=== PATIENT | male | born 1940 | race Caucasian/White ===

== ENCOUNTER 2017-12-26 09:15 | Emergency (ER) | payer OTHER, MEDICARE ==
--- NOTE | 2017-12-26 10:04 | ER Document Report ---
ED General - General Chief Complaint: Cough Stated Complaint: COUGH,URINARY ISSUES Time Seen by Provider: 12/26/17 09:57 Notes: The patient is a 77-year-old male, past medical history bladder cancer with surgery in 2013, presents with cough for the past few days and pain in his right back when he is coughing. In addition, feels like he is having decreased urine output. Usually he wakes 5 times in the night to urinate, but he only woke up twice last night. He was at the [place] [facility] and was sent to the ER for further evaluation and treatment. He denies fevers, hemoptysis, chest pain at rest, nausea, vomiting, abdominal pain or flank pain. TRAVEL OUTSIDE OF THE [place] IN LAST 30 DAYS: No - Related Data Allergies/Adverse Reactions: Penicillins Allergy (Verified 12/26/17 09:57) Past Medical History - General Information source: Patient - Social History Smoking Status: Never Smoker Chew tobacco use (# tins/day): No Frequency of alcohol use: Social Drug Abuse: None Family History: Reviewed & Not Pertinent Patient has suicidal ideation: No Patient has homicidal ideation: No - Past Medical History Cardiac Medical History: Reports: Hx DVT, Hx Hypercholesterolemia, Hx Hypertension Renal/ Medical History: Reports: Hx Benign Prostatic Hyperplasia. Denies: Hx Peritoneal Dialysis Musculoskeltal Medical History: Reports Hx Arthritis, Reports Hx Musculoskeletal Deformity, Reports Hx Musculoskeletal Trauma Past Surgical History: Reports: Hx Cardiac Catheterization, Hx Cardiac Surgery - stents, Hx Genitourinary Surgery - TURP, Hx Orthopedic Surgery - Left knee, multiple back surgeries most recently 1 01/15/2016 kyphoplasty L Review of Systems - Review of Systems Notes: REVIEW OF SYSTEMS: CONSTITUTIONAL: -fevers, -chills EENT: -eye pain, -difficulty swallowing, -nasal congestion CARDIOVASCULAR: -chest pain, -syncope. RESPIRATORY: +cough, -SOB GASTROINTESTINAL: -abdominal pain, -nausea, -vomiting, -diarrhea GENITOURINARY: -dysuria, -hematuria, +decreased urine output MUSCULOSKELETAL: +back pain, -neck pain SKIN: -rash or skin lesions. HEMATOLOGIC: -easy bruising or bleeding. LYMPHATIC: -swollen, enlarged glands. NEUROLOGICAL: -altered mental status or loss of consciousness, -headache, - neurologic symptoms PSYCHIATRIC: -anxiety, -depression. ALL OTHER SYSTEMS REVIEWED AND NEGATIVE. Physical Exam - Vital signs Vitals: Temp Pulse Resp BP Pulse Ox 97.6 F 77 16 133/62 H 96 12/26/17 09:26 12/26/17 09:26 12/26/17 09:12/26/17 09:12/26/17 09:26 - Notes Notes: PHYSICAL EXAMINATION: GENERAL: Well-appearing, well-nourished and in no acute distress. HEAD: Atraumatic, normocephalic. EYES: Pupils equal round and reactive to light, extraocular movements intact, sclera anicteric, conjunctiva are normal. ENT: nares patent, oropharynx clear without exudates. Moist mucous membranes. NECK: Normal range of motion, supple without lymphadenopathy LUNGS: Breath sounds clear to auscultation bilaterally and equal. No wheezes rales or rhonchi. HEART: Regular rate and rhythm without murmurs ABDOMEN: Soft, nontender, normoactive bowel sounds. No guarding, no rebound. No masses appreciated. EXTREMITIES: Normal range of motion, no pitting or edema. No cyanosis. BACK: Mild tenderness over right posterior lower chest wall. NEUROLOGICAL: Cranial nerves grossly intact. Normal speech, normal gait. Normal sensory and motor exams. PSYCH: Normal mood, normal affect. SKIN: Warm, Dry, normal turgor, no rashes or lesions noted. Course - Re-evaluation Re-evalutation: Patient appears well and is in no acute distress. His chest x-ray does not show any focal infiltrates. Spoke to him about the bone island on the left side of his chest x-ray, which is not where his pain is located. Rest of blood work and urine are unremarkable. Suspect a component of chest wall strain from the coughing. Instructed him that heating pads, icy hot and follow-up with his primary care physician. Given strict return precautions and he understands. - Vital Signs Vital signs: Temp Pulse Resp BP Pulse Ox 97.6 F 77 16 133/62 H 96 12/26/17 09:26 12/26/17 09:26 12/26/17 09:26 12/26/17 09:26 12/26/17 09:26 - Laboratory Result Diagrams: 12/26/17 10:14 12/26/17 10:14 Laboratory results interpreted by me: 12/26/17 10:14 Carbon Dioxide 31 H - Diagnostic Test Radiology reviewed: Image reviewed, Reports reviewed Radiology results interpreted by me: CXR: No acute infiltrates. 2 cm density over the left posterior 7th rib likely a bone island in the rib itself. Discharge - Discharge Clinical Impression: Cough, Decreased urination Back pain Qualifiers: Back pain location: back pain in unspecified location Chronicity: unspecified Back pain laterality: right Qualified Code(s): M54.9 - Dorsalgia, unspecified Condition: Stable Disposition: HOME, SELF-CARE Additional Instructions: There is no evidence of pneumonia on your chest x-ray. 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 Your blood work and urine were normal. Forms: Elevated Blood Pressure Referrals: ALICE ESQUEDA MD [Primary Care Provider] - Follow up as needed
[2017-12-26 10:35] LABS: ABSOLUTE EOSINOPHILS # (AUTO) 0.1 10^3/uL (0.0-0.6); ABSOLUTE LYMPHOCYTES (AUTO) 2.2 10^3/uL (0.5-4.7); ABSOLUTE MONOCYTES (AUTO) 0.7 10^3/uL (0.1-1.4); BASOPHILS % (AUTO) 0.8 % (0-2); HEMATOCRIT 47.9 % (37.9-51.0); HEMOGLOBIN 16.4 g/dL (13.5-17.0); LYMPHOCYTES % (AUTO) 37.2 % (13-45); MEAN CORPUSCULAR HEMOGLOBIN 32.1 pg (27.0-33.4); MEAN CORPUSCULAR HGB CONC 34.2 g/dL (32.0-36.0); MEAN CORPUSCULAR VOLUME 94 fl (80-97); MONOCYTES % (AUTO) 10.8 % (3-13); PLATELET COUNT 187 10^3/uL (150-450); RED BLOOD COUNT 5.11 10^6/uL (4.35-5.55); SEGMENTED NEUTROPHILS % (AUTO) 49.2 % (42-78); TOTAL CELLS COUNTED % (AUTO) 100 %
--- NOTE | 2017-12-26 10:54 | RADIOLOGY REPORT (SQ) ---
EXAM DESCRIPTION: CHEST 2 VIEWS COMPLETED DATE/TIME: 12/26/2017 10:30 am REASON FOR STUDY: cough COMPARISON: None. EXAM PARAMETERS: NUMBER OF VIEWS: two views TECHNIQUE: Digital Frontal and Lateral radiographic views of the chest acquired. RADIATION DOSE: NA LIMITATIONS: none FINDINGS: LUNGS AND PLEURA: No focal infiltrates or pleural effusions. No pneumothorax. A 2 cm density is seen over the left posterior 7th rib on both frontal and lateral films which is lik geremias a bone island in the rib. Pulmonary nodule is considered less likely. MEDIASTINUM AND HILAR STRUCTURES: No masses or contour abnormalities. HEART AND VASCULAR STRUCTURES: Heart normal size. No evidence for failure. BONES: Osteoporotic with multiple thoracic compressions. L1 and L2 kyphoplasties with bone cement HARDWARE: None in the chest. OTHER: No other significant finding. IMPRESSION: No acute infiltrates. 2 cm density over the left posterior 7th rib likely a bone island in the rib itself. TECHNICAL DOCUMENTATION: JOB ID: [id number] [employer]- All Rights Reserved Reading location - IP/workstation name: [email or web address]
[2017-12-26 10:58] LABS: ALANINE AMINOTRANSFERASE 21 U/L (21-72); ALBUMIN 3.7 g/dL (3.5-5.0); ALKALINE PHOSPHATASE 63 U/L (38-126); ANION GAP 9 (5-19); ASPARTATE AMINO TRANSFERASE 29 U/L (17-59); BILIRUBIN,DIRECT 0.3 mg/dL (0.0-0.4); BILIRUBIN,TOTAL 0.9 mg/dL (0.2-1.3); BLOOD UREA NITROGEN 16 mg/dL (7-20); CALCIUM 9.7 mg/dL (8.4-10.2); CARBON DIOXIDE 31 mmol/L (22-30); CHLORIDE 103 mmol/L (98-107); GLUCOSE 75 mg/dL (75-110); POTASSIUM 4.8 mmol/L (3.6-5.0); SODIUM 143.2 mmol/L (137-145); TOTAL PROTEIN 6.6 g/dL (6.3-8.2)
[2017-12-26 11:17] LABS: APPEARANCE,URINE CLEAR; BILIRUBIN,URINE NEGATIVE (NEGATIVE); COLOR,URINE YELLOW; GLUCOSE, URINE NEGATIVE (NEGATIVE); KETONES,URINE NEGATIVE (NEGATIVE); LEUKOCYTE ESTERASE,URINE NEGATIVE (NEGATIVE); NITRITE,URINE NEGATIVE (NEGATIVE); PROTEIN,URINE NEGATIVE (NEGATIVE); URINE SPECIFIC GRAVITY 1.011; UROBILINOGEN,URINE NEGATIVE mg/dL (<2.0)
[2017-12-26 12:01] VITALS: BP 175/68
== END 2017-12-26 12:03 | disposition home or self-care (01) ==
LOC: ER 09:15
DX: R05 Cough (principal); R33.9 Retention of urine, unspecified; M54.9 Dorsalgia, unspecified; I10 Essential (primary) hypertension
CPT/HCPCS: 36415; 71046; 80053; 81001; 85025; 99284

== ENCOUNTER 2019-02-26 09:30 | Emergency (ER) | payer MEDICARE, OTHER ==
--- NOTE | 2019-02-26 09:54 | ER Document Report ---
ED Medical Screen (RME) - General Chief Complaint: Leg Pain Stated Complaint: LEG PAIN Time Seen by Provider: 02/26/19 09:46 Mode of Arrival: Ambulatory Information source: Patient Notes: 78-year-old male presents to ED for complaint of right calf pain since yesterday. He states he has had a DVT in the past in the same leg that went all way up to the groin in 2016. He is on Eliquis. He also has coronary artery disease. Blood pressure cholesterol. He states he is also had bilateral knee surgery bilateral inguinal hernia surgery multiple back surgeries and cardiac stents. He is alert oriented respirations regular and unlabored speaking in full sentences walks with a even steady gait. As I said the calf pain started yesterday there is very minimal if any swelling to the right leg. I have greeted and performed a rapid initial assessment of this patient. A comprehensive ED assessment and evaluation of the patient, analysis of test results and completion of medical decision making process will be conducted by an additional ED providers. Dictation of this chart was performed using voice recognition software; therefore, there may be some unintended grammatical errors. TRAVEL OUTSIDE OF THE [place] IN LAST 30 DAYS: No - Related Data Allergies/Adverse Reactions: Penicillins Allergy (Verified 02/26/19 09:31) Past Medical History - Past Medical History Cardiac Medical History: Reports: Hx DVT, Hx Hypercholesterolemia, Hx Hypertension Renal/ Medical History: Reports: Hx Benign Prostatic Hyperplasia. Denies: Hx Peritoneal Dialysis Musculoskeltal Medical History: Reports Hx Arthritis, Reports Hx Musculoskeletal Deformity, Reports Hx Musculoskeletal Trauma Past Surgical History: Reports: Hx Cardiac Catheterization, Hx Cardiac Surgery - stents, Hx Genitourinary Surgery - TURP, Hx Orthopedic Surgery - Left knee, multiple back surgeries most recently 1 01/15/2016 kyphoplasty L Physical Exam - Vital signs Vitals: Temp Pulse Resp BP Pulse Ox 98.1 F 57 L 17 156/66 H 97 02/26/19 09:34 02/26/19 09:34 02/26/19 09:34 02/26/19 09:34 02/26/19 09:34 Course - Vital Signs Vital signs: Temp Pulse Resp BP Pulse Ox 98.1 F 57 L 17 156/66 H 97 02/26/19 09:34 02/26/19 09:34 02/26/19 09:34 02/26/19 09:34 02/26/19 09:34
[2019-02-26 10:21] LABS: ABSOLUTE EOSINOPHILS # (AUTO) 0.1 10^3/uL (0.0-0.6); ABSOLUTE LYMPHOCYTES (AUTO) 1.6 10^3/uL (0.5-4.7); ABSOLUTE MONOCYTES (AUTO) 0.7 10^3/uL (0.1-1.4); ABSOLUTE NEUT (AUTO) 3.4 10^3/uL (1.7-8.2); BASOPHILS % (AUTO) 0.8 % (0-2); EOSINOPHILS % (AUTO) 1.2 % (0-6); HEMATOCRIT 47.8 % (37.9-51.0); HEMOGLOBIN 16.3 g/dL (13.5-17.0); LYMPHOCYTES % (AUTO) 28.2 % (13-45); MEAN CORPUSCULAR HEMOGLOBIN 31.7 pg (27.0-33.4); MEAN CORPUSCULAR VOLUME 93 fl (80-97); MONOCYTES % (AUTO) 11.3 % (3-13); PLATELET COUNT 151 10^3/uL (150-450); RED BLOOD COUNT 5.14 10^6/uL (4.35-5.55); RED CELL DISTRIBUTION WIDTH 13.7 % (11.5-14.0); SEGMENTED NEUTROPHILS % (AUTO) 58.5 % (42-78); TOTAL CELLS COUNTED % (AUTO) 100 %; WHITE BLOOD COUNT 5.8 10^3/uL (4.0-10.5)
[2019-02-26 10:30] LABS: INTERNATIONAL RATION (INR) 1.17; PROTHROMBIN TIME 14.9 SEC (11.4-15.4)
[2019-02-26 10:31] LABS: PARTIAL THROMBOPLASTIN TIME 32.5 SEC (23.5-35.8)
[2019-02-26 10:44] LABS: ALBUMIN 4.1 g/dL (3.5-5.0); ALKALINE PHOSPHATASE 65 U/L (38-126); ANION GAP 7 (5-19); ASPARTATE AMINO TRANSFERASE 32 U/L (17-59); BILIRUBIN,DIRECT 0.2 mg/dL (0.0-0.4); BLOOD UREA NITROGEN 18 mg/dL (7-20); CALCIUM 9.7 mg/dL (8.4-10.2); CARBON DIOXIDE 29 mmol/L (22-30); CHLORIDE 101 mmol/L (98-107); GLUCOSE 109 mg/dL (75-110); POTASSIUM 4.6 mmol/L (3.6-5.0); TOTAL PROTEIN 6.6 g/dL (6.3-8.2)
--- NOTE | 2019-02-26 12:01 | RADIOLOGY REPORT (SQ) ---
EXAM DESCRIPTION: VENOUS UNILATERAL LOWER COMPLETED DATE/TIME: 02/26/2019 10:53 am REASON FOR STUDY: right calf pain previous dvt COMPARISON: None. 03/07/2016 TECHNIQUE: Dynamic and static ervin scale and color images acquired of the right leg venous system. S elected spectral images acquired with additional compression and augmentation maneuvers. The contrala teral common femoral vein and saphenofemoral junction were also imaged. Images stored on PACS. LIMITATIONS: None. FINDINGS: COMMON FEMORAL: Normal phasicity, compression and augmentation. No visualized echogenic ma terial on ervin scale. No defects on color images. FEMORAL: Normal compression and augmentation. No visualized echogenic material on ervin scale. No defe cts on color images. POPLITEAL: Chronic echogenic thrombus. CALF VESSELS: Chronic echogenic thrombus. GSV and SSV: Chronic echogenic thrombus in the greater saphenous. ANY DEEP VENOUS INSUFFICIENCY: Not evaluated. ANY EVIDENCE OF POPLITEAL CYST: No. OTHER: No other significant finding. CONTRALATERAL COMMON FEMORAL VEIN AND SAPHENOFEMORAL JUNCTION: Normal phasicity, compression and augmentation. No visualized echogenic material on ervin scale. No de fects on color images. IMPRESSION: No acute DVT or SVT. Chronic thrombus popliteal and distal as well as greater saphenous . TECHNICAL DOCUMENTATION: JOB ID: [id number] [employer]- All Rights Reserved Reading location - IP/workstation name: [email or web address]
--- NOTE | 2019-02-26 12:46 | ER Document Report ---
Entered by ELISE DUBOSE SCRIBE 02/26/19 1038 Acting as scribe for:URBANO ESTES MD ED General - General Chief Complaint: Leg Pain Stated Complaint: LEG PAIN Time Seen by Provider: 02/26/19 09:46 Primary Care Provider: LELA,GENIE [Primary Care Provider] - Follow up in 1 week Mode of Arrival: Ambulatory Notes: Patient is a 78-year-old male with history of DVT presenting to the emergency department complaining of pain in his right calf. Patient states that he n oticed the pain started yesterday, he is currently taking Eliquis for his DVT. TRAVEL OUTSIDE OF THE [place] IN LAST 30 DAYS: No - Related Data Allergies/Adverse Reactions: Penicillins Allergy (Verified 02/26/19 09:31) Past Medical History - General Information source: Patient - Social History Smoking Status: Former Smoker Cigarette use (# per day): No Chew tobacco use (# tins/day): No Frequency of alcohol use: Social Drug Abuse: None Family History: Reviewed & Not Pertinent Patient has suicidal ideation: No Patient has homicidal ideation: No - Past Medical History Cardiac Medical History: Reports: Hx DVT, Hx Hypercholesterolemia, Hx Hypertension Renal/ Medical History: Reports: Hx Benign Prostatic Hyperplasia Musculoskeletal Medical History: Reports Hx Arthritis, Reports Hx Musculoskeletal Deformity, Reports Hx Musculoskeletal Trauma Past Surgical History: Reports: Hx Cardiac Catheterization, Hx Cardiac Surgery - stents, Hx Genitourinary Surgery - TURP, Hx Orthopedic Surgery - Left knee, multiple back surgeries most recently 1 01/15/2016 kyphoplasty L Review of Systems - Review of Systems Constitutional: No symptoms reported EENT: No symptoms reported Cardiovascular: No symptoms reported Respiratory: No symptoms reported Gastrointestinal: No symptoms reported Genitourinary: No symptoms reported Male Genitourinary: No symptoms reported Musculoskeletal: See HPI, Other - Right calf pain Skin: No symptoms reported Hematologic/Lymphatic: See HPI, Blood clots - DVT Neurological/Psychological: No symptoms reported -: Yes All other systems reviewed and negative Physical Exam - Vital signs Vitals: Temp Pulse Resp BP Pulse Ox 98.1 F 57 L 17 156/66 H 97 02/26/19 09:34 02/26/19 09:34 02/26/19 09:34 02/26/19 09:34 02/26/19 09:34 - Notes Notes: Physical Exam: General: Alert, appears well. HEENT: Normocephalic. Atraumatic. PERRL. Extraocular movements intact. Oropharynx clear. Neck: Supple. Non-tender. Respiratory: No respiratory distress. Clear and equal breath sounds bilaterally. Cardiovascular: Regular rate and rhythm. Abdominal: Normal Inspection. Non-tender. No distension. Normal Bowel Sounds. Back: Non-tender. No deformity or step off. Extremities: Moves all four extremities. Upper extremities: Normal inspection. Normal ROM. Lower extremities: Right posterior calf tenderness to palpation. No palpable cords, no unusual warmth. No edema. Normal ROM. Neurological: Normal cognition. AAOx4. Normal speech. Psychological: Normal affect. Normal Mood. Skin: Warm. Dry. Normal color. Course - Re-evaluation Re-evalutation: 02/26/19 12:45 No acute DVT or SVT, chronic findings. Discussed with patient. Also discussed case with oncologist on-call who stated if chronic in nature no need for anticoagulation change. Patient is to follow-up with his family doctor in the next 5 to 7 days any worsening of symptoms for reevaluation. He does not have any chest pain or shortness of breath. - Vital Signs Vital signs: Temp Pulse Resp BP Pulse Ox 98.2 F 49 L 18 156/83 H 95 02/26/19 12:56 02/26/19 12:56 02/26/19 12:56 02/26/19 12:56 02/26/19 12:56 - Laboratory Result Diagrams: 02/26/19 10:06 02/26/19 10:06 Discharge - Discharge Clinical Impression: Calf pain Qualifiers: Laterality: right Qualified Code(s): M79.661 - Pain in right lower leg Chronic deep vein thrombosis (DVT) Qualifiers: DVT location: lower extremity Affected thrombotic vein of extremity: other lower extremity vein Laterality: right Qualified Code(s): I82.591 - Chronic embolism and thrombosis of other specified deep vein of right lower extremity Condition: Good Disposition: HOME, SELF-CARE Referrals: [facility] [Primary Care Provider] - Follow up in 1 week I personally performed the services described in the documentation, reviewed and edited the documentation which was dictated to the scribe in my presence, and it accurately records my words and actions.
[2019-02-26 12:58] VITALS: BP 156/83
== END 2019-02-26 12:58 | disposition home or self-care (01) ==
LOC: ER 09:30
DX: I82.591 Chronic embolism and thrombosis of other specified deep vein of right lower extremity (principal); M79.661 Pain in right lower leg; Z79.01 Long term (current) use of anticoagulants; Z87.891 Personal history of nicotine dependence; I10 Essential (primary) hypertension
CPT/HCPCS: 36415; 80053; 85025; 85610; 85730; 93971; 99284

== ENCOUNTER 2019-03-26 08:37 | Day surgery (SDC) | payer OTHER, MEDICARE ==
[~2019-03-26 08:37] MED LIST: DIPHENHYDRAMINE HCL 50 MG/ML VIAL ONE; EPINEPHRINE INJ 1 MG/10 ML DISP.SYRIN ONE; FLUMAZENIL INJ 0.5 MG/5 ML VIAL ONE; GLUCAGON,HUMAN RECOMB 1 MG INJ ONE; NALOXONE HCL INJ/PF 0.4 MG/1 ML SDV ONE; ONDANSETRON HCL INJ/PF 4 MG/2 ML SDV ONE
[2019-03-26] MEDS: MIDAZOLAM 2 MG/2 ML INJ ONE ×5 (09:34→09:48)
[2019-03-26] MEDS: FENTANYL CITRATE INJ/PF 100 MCG/2 ML AMPUL ONE ×2 (09:36→09:50)
[2019-03-26] MEDS ORDERED: SIMETHICONE 40 MG/0.6 ML DROPS 30ML ONE (10:25)
--- NOTE | 2019-03-26 10:44 | Discharge Summary ---
Discharge Summary (SDC) - Discharge Final Diagnosis: 1. Esophageal and gastric varices 2. Diffuse gastritis 3. Extensive sigmoid colon diverticulosis 4. Colon Polyp at 32 cm Date of Surgery: 03/26/19 Discharge Date: 03/26/19 Condition: Good Referrals: [facility] [Primary Care Provider] - Discharge Diet: As Tolerated Discharge Activity: Activity As Tolerated Report the Following to Your Physician Immediately: Shortness of Breath, Increase in Pain, Fever over 101 Degrees
--- NOTE | 2019-03-26 10:49 | Operative Report ---
Operative Report DATE OF SURGERY: 03/26/19 PREOPERATIVE DIAGNOSIS: 1. Melena. 2. Screen for colon and rectal carcinoma POSTOPERATIVE DIAGNOSIS: Same with. 1. Diffuse gastritis with mild erosive area of the gastric body. 2. Esophageal and gastric varices. 3. Extensive sigmoid diverticulosis. 4. Sigmoid colon polyp OPERATION: 1. Esophagogastroduodenoscopy. 2. Cold forceps biopsy of gastric body and gastric antrum. 3. Total colonoscopy to cecum with photodocumentation and hot snare polypectomy of sigmoid colon polyp at 35 cm. SURGEON: ALBERTO NICHOLSON ANESTHESIA: Moderate Sedation TISSUE REMOVED OR ALTERED: Tissue and polyp COMPLICATIONS: None ESTIMATED BLOOD LOSS: Minimal INTRAOPERATIVE FINDINGS: See below PROCEDURE: Patient was taken the preop holding area to the endoscopy suite where monitoring devices were attached; he was placed in semirecumbent position. Surgical plan surgical timeout were conducted. Oral mouthpiece inserted. The flexible upper endoscope was advanced to the oropharynx, down the esophagus to stomach into the duodenum. The patient tolerated this well. The first and second portion of the duodenum were normal. The scope was brought back to the pylorus which was normal. The stomach was significant for diffuse gastritis. Along the greater curvature proximally was an area of mild/moderate inflammation superficial eroded areas. Photo taken. Of note there were diffuse 1-2 esophageal and gastric varices. 2 biopsies were taken of the stomach lining, one in the proximal greater curve and a second of the antrum. No evidence of tumor stricture bleeding polyp or clot. The GE junction was grossly unremarkable from the retrograde and anterograde sites. The Z line was at 38 cm from the incisor. The scope was brought back to the esophagus and other than the varices, no other pathology seen. Scope was withdrawn the patient oropharynx. The patient was repositioned for colonoscopy. A rectal exam was performed. Posterior surface of the prostate gland was enlarged but smooth. The flexible adult colonoscope was advanced although through the anal rectal canal of the cecum. This is an excellent 7 well-prepped bowel. The tumor was visualized with the ileocecal valve photographed. The scope was withdrawn to light the colon checked the mucosa carefully. There were extensive sigmoid diverticulosis without stricture. There was a sessile polyp of the sigmoid colon at approximately 32 cm from the anal verge which was moved using a hot snare device medium heat and specimen retained. Polypectomy site showed minimal bleeding. The scope was withdrawn the patient's anus. He tolerated procedure well. Per surveillance guidelines, patient be an appropriate candidate for follow-up colonoscopy in 3 to 5 years depending upon his clinical condition given his advancing age.
[2019-03-26 11:36] VITALS: BP 125/61
== END 2019-03-26 11:35 | disposition home or self-care (01) ==
LOC: END 08:37
PROVIDERS: ATTEND Surgery
DX: I85.00 Esophageal varices without bleeding (principal); I86.4 Gastric varices; K29.50 Unspecified chronic gastritis without bleeding; D12.5 Benign neoplasm of sigmoid colon; K57.30 Diverticulosis of large intestine without perforation or abscess without bleeding; K92.1 Melena; Z79.01 Long term (current) use of anticoagulants; E78.00 Pure hypercholesterolemia, unspecified; E04.1 Nontoxic single thyroid nodule; I10 Essential (primary) hypertension; Z86.718 Personal history of other venous thrombosis and embolism; Z87.891 Personal history of nicotine dependence; Z79.899 Other long term (current) drug therapy
CPT/HCPCS: 43239; 45385; 88305 ×2; J2250; J3010; J0171; J1200; J1610; J2310; J2405; J3490

== ENCOUNTER 2019-05-16 11:36 | Emergency (ER) | payer OTHER ==
[2019-05-16 11:46] VITALS: BP 156/66
[2019-05-16] MEDS ORDERED: OXYMETAZOLINE HCL 0.05% NASAL SPRAY 15 ML BOTTLE NASL ONE (11:47)
--- NOTE | 2019-05-16 11:49 | ER Document Report ---
ED Medical Screen (RME) - General Chief Complaint: Nose Bleed Stated Complaint: NOSE BLEED Time Seen by Provider: 05/16/19 11:44 Primary Care Provider: GENIE VOGEL [Primary Care Provider] - Follow up as needed Information source: Patient Notes: Patient presents complaining of nosebleed that started at 630 this morning. Patient states that bleeding is able to be controlled with packing in the nose. Patient denies any nausea or vomiting. Patient denies any other abnormal bruising. Patient takes Eliquis for history of DVT in the past. I have greeted and performed a rapid initial assessment of this patient. A comprehensive ED assessment and evaluation of the patient, analysis of test results and completion of the medical decision making process will be conducted by additional ED providers. TRAVEL OUTSIDE OF THE [place] IN LAST 30 DAYS: No - Related Data Allergies/Adverse Reactions: latex Allergy (Verified 05/16/19 11:41) Penicillins Allergy (Verified 05/16/19 11:41) Home Medications: carafate. apixiban. rouvastatin. vitamin d3. calcium Past Medical History - Social History Chew tobacco use (# tins/day): No Drug Abuse: None - Past Medical History Cardiac Medical History: Reports: Hx Coronary Artery Disease - 2 STENTS PLACED IN 2010, Hx DVT, Hx Hypercholesterolemia, Hx Hypertension Denies: Hx Heart Attack Pulmonary Medical History: Denies: Hx Asthma, Hx Bronchitis, Hx COPD, Hx Pneumonia Neurological Medical History: Denies: Hx Cerebrovascular Accident, Hx Seizures Renal/ Medical History: Reports: Hx Benign Prostatic Hyperplasia. Denies: Hx Peritoneal Dialysis Musculoskeltal Medical History: Reports Hx Arthritis - GENERALIZED, Reports Hx Musculoskeletal Deformity, Reports Hx Musculoskeletal Trauma Past Surgical History: Reports: Hx Cardiac Catheterization, Hx Cardiac Surgery - stents, Hx Genitourinary Surgery - TURP, Hx Orthopedic Surgery - Left knee, multiple back surgeries most recently 1 01/15/2016 kyphoplasty L - Immunizations Hx Diphtheria, Pertussis, Tetanus Vaccination: No - NOT SURE IF UP TO DATE Physical Exam - Vital signs Vitals: Temp Pulse Resp BP Pulse Ox 98 F 62 16 156/66 H 96 05/16/19 11:41 05/16/19 11:41 05/16/19 11:41 05/16/19 11:41 05/16/19 11:41 - General General appearance: Alert Notes: Blood noted to tissue packed in the left nostril, no blood noted to posterior pharynx Course - Vital Signs Vital signs: Temp Pulse Resp BP Pulse Ox 98 F 62 16 156/66 H 96 05/16/19 11:41 05/16/19 11:41 05/16/19 11:41 05/16/19 11:41 05/16/19 11:41 Doctor's Discharge - Discharge Referrals: [facility] [Primary Care Provider] - Follow up as needed
[2019-05-16 12:21] LABS: ABSOLUTE LYMPHOCYTES (AUTO) 1.6 10^3/uL (0.5-4.7); ABSOLUTE MONOCYTES (AUTO) 0.5 10^3/uL (0.1-1.4); ABSOLUTE NEUT (AUTO) 3.7 10^3/uL (1.7-8.2); BASOPHILS % (AUTO) 0.8 % (0-2); EOSINOPHILS % (AUTO) 0.7 % (0-6); HEMATOCRIT 45.6 % (37.9-51.0); HEMOGLOBIN 15.7 g/dL (13.5-17.0); MEAN CORPUSCULAR HEMOGLOBIN 32.4 pg (27.0-33.4); MEAN CORPUSCULAR HGB CONC 34.3 g/dL (32.0-36.0); MEAN CORPUSCULAR VOLUME 94 fl (80-97); MONOCYTES % (AUTO) 9.2 % (3-13); PLATELET COUNT 169 10^3/uL (150-450); RED BLOOD COUNT 4.83 10^6/uL (4.35-5.55); RED CELL DISTRIBUTION WIDTH 13.9 % (11.5-14.0); SEGMENTED NEUTROPHILS % (AUTO) 62.3 % (42-78); TOTAL CELLS COUNTED % (AUTO) 100 %
[2019-05-16 12:31] LABS: INTERNATIONAL RATION (INR) 1.13; PROTHROMBIN TIME 14.5 SEC (11.4-15.4)
[2019-05-16 12:32] LABS: PARTIAL THROMBOPLASTIN TIME 31.7 SEC (23.5-35.8)
--- NOTE | 2019-05-16 12:32 | ER Document Report ---
ED ENT - General Chief Complaint: Nose Bleed Stated Complaint: NOSE BLEED Time Seen by Provider: 05/16/19 11:44 Primary Care Provider: [facility] [Primary Care Provider] - Follow up as needed Information source: Patient Notes: 79-year-old male presents to the emergency department with a spontaneous nosebleed. He states that he began noticing blood dripping from his left nostril this morning. He denies pain or nasal manipulation. He is taking apixaban twice daily, did not take the 7 AM dose today. Notes a prior history of nosebleeds and has a history of chronic rhinitis and uses Nasacort. He is presently stable without active nosebleed. TRAVEL OUTSIDE OF THE [place] IN LAST 30 DAYS: No - Related Data Allergies/Adverse Reactions: latex Allergy (Verified 05/16/19 11:41) Penicillins Allergy (Verified 05/16/19 11:41) Home Medications: carafate. apixiban. rouvastatin. vitamin d3. calcium Past Medical History - General Information source: Patient - Social History Smoking Status: Never Smoker Chew tobacco use (# tins/day): No Drug Abuse: None Family History: Reviewed & Not Pertinent Patient has suicidal ideation: No Patient has homicidal ideation: No - Past Medical History Cardiac Medical History: Reports: Hx Coronary Artery Disease - 2 STENTS PLACED IN 2010, Hx DVT, Hx Hypercholesterolemia, Hx Hypertension Denies: Hx Heart Attack Pulmonary Medical History: Denies: Hx Asthma, Hx Bronchitis, Hx COPD, Hx Pneumonia Neurological Medical History: Denies: Hx Cerebrovascular Accident, Hx Seizures Renal/ Medical History: Reports: Hx Benign Prostatic Hyperplasia. 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, Reports Hx Musculoskeletal Deformity, Reports Hx Musculoskeletal Trauma Past Surgical History: Reports: Hx Cardiac Catheterization, Hx Cardiac Surgery - stents, Hx Genitourinary Surgery - TURP, Hx Orthopedic Surgery - Left knee, multiple back surgeries most recently 1 01/15/2016 kyphoplasty L - Immunizations Hx Diphtheria, Pertussis, Tetanus Vaccination: No - NOT SURE IF UP TO DATE Review of Systems - Review of Systems Notes: REVIEW OF SYSTEMS GENERAL: Negative for any nausea, vomiting, fevers, chills, or weight loss. NEUROLOGIC: Negative for any blurry vision, blind spots, double vision, facial asymmetry, dysphagia, dysarthria, hemiparesis, hemisensory deficits, vertigo, ataxia. HEENT: + nosebleed, negative for any head trauma, neck trauma, neck stiffness, photophobia, phonophobia, sinusitis, rhinitis. CARDIAC: Negative for any chest pain, dyspnea on exertion, paroxysmal nocturnal dyspnea, peripheral edema. PULMONARY: Negative for any shortness of breath, wheezing, COPD, or TB exposure. GASTROINTESTINAL: Negative for any abdominal pain, nausea, vomiting, bright red blood per rectum, melena. GENITOURINARY: Negative for any dysuria, hematuria, incontinence. INTEGUMENTARY: Negative for any rashes, cuts, insect bites. RHEUMATOLOGIC: Negative for any joint pains, photosensitive rashes, history of vasculitis or kidney problems. HEMATOLOGIC: + DVT, Negative for any abnormal bruising, frequent infections or bleeding. Physical Exam - Vital signs Vitals: Temp Pulse Resp BP Pulse Ox 98 F 62 16 156/66 H 96 05/16/19 11:41 05/16/19 11:41 05/16/19 11:41 05/16/19 11:41 05/16/19 11:41 - Notes Notes: PHYSICAL EXAMINATION: GENERAL: Well-appearing, well-nourished and in no acute distress. HEAD: Atraumatic, normocephalic. EYES: Pupils equal round and reactive to light, extraocular movements intact, sclera anicteric, conjunctiva are normal. ENT: nares patent, no active bleeding, no ulcers or site of active prior bleeding, oropharynx clear without exudates. Moist mucous membranes. NECK: Normal range of motion, supple without lymphadenopathy LUNGS: Breath sounds clear to auscultation bilaterally and equal. No wheezes rales or rhonchi. HEART: Regular rate and rhythm without murmurs ABDOMEN: Soft, nontender, normoactive bowel sounds. No guarding, no rebound. No masses appreciated. EXTREMITIES: Normal range of motion, no pitting or edema. No cyanosis. NEUROLOGICAL: No focal neurological deficits. Moves all extremities spontaneously and on command. PSYCH: Normal mood, normal affect. SKIN: Warm, Dry, normal turgor, no rashes or lesions noted. Course - Re-evaluation Re-evalutation: 05/16/19 13:22 79-year-old male presents with a spontaneous nosebleed involving the left nare, Andrew-Synephrine nasal spray used and bleeding spontaneously stopped. He was observed in the emergency department for greater than an hour and is now stating he is ready to go home. I have explained to him that his nosebleed may recur. He is encouraged not to apply nasal steroids or to blow his nose. He has held his Eliquis today, I have encouraged him to follow with his doctor or return to the emergency department if there are further difficulties or complications. - Vital Signs Vital signs: Temp Pulse Resp BP Pulse Ox 98 F 62 16 156/66 H 96 05/16/19 11:41 05/16/19 11:41 05/16/19 11:41 05/16/19 11:41 05/16/19 11:41 - Laboratory Result Diagrams: 05/16/19 11:56 05/16/19 11:56 Laboratory results interpreted by me: 05/16/19 11:56 BUN 25 H AST 65 H Discharge - Discharge Clinical Impression: Epistaxis Disposition: HOME, SELF-CARE Additional Instructions: Apply pressure and a cold pack to the nasal area if the bleeding recurs. Return to the emergency department as needed. [facility]errals: [facility] [Primary Care Provider] - Follow up as needed
[2019-05-16 12:40] LABS: ALBUMIN 4.1 g/dL (3.5-5.0); ALKALINE PHOSPHATASE 82 U/L (38-126); ANION GAP 8 (5-19); ASPARTATE AMINO TRANSFERASE 65 U/L (17-59); BILIRUBIN,DIRECT 0.2 mg/dL (0.0-0.4); BLOOD UREA NITROGEN 25 mg/dL (7-20); CALCIUM 9.7 mg/dL (8.4-10.2); CARBON DIOXIDE 28 mmol/L (22-30); CHLORIDE 104 mmol/L (98-107); GLUCOSE 87 mg/dL (75-110)
== END 2019-05-16 13:39 | disposition home or self-care (01) ==
LOC: ER 11:36
DX: R04.0 Epistaxis (principal); I25.10 Atherosclerotic heart disease of native coronary artery without angina pectoris; Z91.040 Latex allergy status; Z88.0 Allergy status to penicillin; Z86.718 Personal history of other venous thrombosis and embolism
CPT/HCPCS: 36415; 85025; 85610; 85730; 80053; J3490

== ENCOUNTER 2019-05-18 10:27 | Emergency (ER) | payer OTHER ==
[2019-05-18] MEDS ORDERED: OXYMETAZOLINE HCL 0.05% NASAL SPRAY 15 ML BOTTLE NASL ONE (11:08)
--- NOTE | 2019-05-18 11:09 | ER Document Report ---
ED Medical Screen (RME) - General Chief Complaint: Nose Bleed Stated Complaint: NOSE BLEED Time Seen by Provider: 05/18/19 11:05 Primary Care Provider: [facility],GENIE [Primary Care Provider] - Follow up as needed Mode of Arrival: Ambulatory Information source: Patient Notes: Patient is an 79-year-old male presenting to the emergency department with chief complaint of left sided epistaxis. Patient reports bleeding started approximately 2 hours ago. Patient currently has a tissue inside of his nose and he believes the bleeding may have stopped. Patient reports recurrent nosebleeds, states he is taking Eliquis. Patient was seen here on Saturday for the same problem. Exam: No active bleeding noted from either nare. Dried blood noted in the posterior pharynx, no active bleeding noted. I have greeted and performed a rapid initial assessment of this patient. A comprehensive ED assessment and evaluation of the patient, analysis of test results and completion of the medical decision making process will be conducted by additional ED providers. I have specifically instructed the patient or family members with the patient to immediately return to any nursing staff should anything change in the patient's condition or with their chief complaint. This medical record was dictated with voice recognizing software. There may be grammatical, syntax errors that are unintended. TRAVEL OUTSIDE OF THE [place] IN LAST 30 DAYS: No - Related Data Allergies/Adverse Reactions: latex Allergy (Verified 05/16/19 11:41) Penicillins Allergy (Verified 05/16/19 11:41) Home Medications: eliquis Past Medical History - Social History Frequency of alcohol use: None Drug Abuse: None - Past Medical History Cardiac Medical History: Reports: Hx Coronary Artery Disease - 2 STENTS PLACED IN 2010, Hx DVT, Hx Hypercholesterolemia, Hx Hypertension Denies: Hx Heart Attack Pulmonary Medical History: Denies: Hx Asthma, Hx Bronchitis, Hx COPD, Hx Pneumonia Neurological Medical History: Denies: Hx Cerebrovascular Accident, Hx Seizures Renal/ Medical History: Reports: Hx Benign Prostatic Hyperplasia. Denies: Hx Peritoneal Dialysis Musculoskeltal Medical History: Reports Hx Arthritis - GENERALIZED, Reports Hx Musculoskeletal Deformity, Reports Hx Musculoskeletal Trauma Past Surgical History: Reports: Hx Cardiac Catheterization, Hx Cardiac Surgery - stents, Hx Genitourinary Surgery - TURP, Hx Orthopedic Surgery - Left knee, multiple back surgeries most recently 1 01/15/2016 kyphoplasty L - Immunizations Hx Diphtheria, Pertussis, Tetanus Vaccination: No - NOT SURE IF UP TO DATE Physical Exam - Vital signs Vitals: Temp Pulse Resp BP Pulse Ox 98.3 F 65 18 160/98 H 95 05/18/19 10:34 05/18/19 10:34 05/18/19 10:34 05/18/19 10:34 05/18/19 10:34 Course - Vital Signs Vital signs: Temp Pulse Resp BP Pulse Ox 98.3 F 65 18 160/98 H 95 05/18/19 10:34 05/18/19 10:34 05/18/19 10:34 05/18/19 10:34 05/18/19 10:34 Doctor's Discharge - Discharge Referrals: [facility] [Primary Care Provider] - Follow up as needed
--- NOTE | 2019-05-18 13:31 | ER Document Report ---
ED ENT - General Chief Complaint: Nose Bleed Stated Complaint: NOSE BLEED Time Seen by Provider: 05/18/19 11:05 [facility] Care Provider: [facility] [[facility] Provider] - Follow up as needed Mode of Arrival: Ambulatory Information source: Patient TRAVEL OUTSIDE OF THE [place] IN LAST 30 DAYS: No - HPI Notes: Patient presents with 2 days of nosebleed. He states it is been intermittent. He was seen here 2 days ago he states that time nasal spray was applied but it was not packed. He states the bleeding stopped he states this morning it was "gushing" again. He is on Eliquis. He denies any pain anywhere. He has no lightheadedness or dizziness. No previous history of nosebleeds. No history of trauma. Symptoms were intermittent. Bleeding appears to have now stopped. Symptoms were mild to moderate. Nothing made them better or worse. There were located on the left side of his nose. - Related Data Allergies/Adverse Reactions: latex Allergy (Verified 05/16/19 11:41) Penicillins Allergy (Verified 05/16/19 11:41) Home Medications: eliquis Past Medical History - General Information source: Patient - Social History Smoking Status: Former Smoker Frequency of alcohol use: None Drug Abuse: None Family History: Reviewed & Not Pertinent Patient has suicidal ideation: No Patient has homicidal ideation: No - Past Medical History Cardiac Medical History: Reports: Hx Coronary Artery Disease - 2 STENTS PLACED IN 2010, Hx DVT, Hx Hypercholesterolemia, Hx Hypertension Denies: Hx Heart Attack Pulmonary Medical History: Denies: Hx Asthma, Hx Bronchitis, Hx COPD, Hx Pneumonia Neurological Medical History: Denies: Hx Cerebrovascular Accident, Hx Seizures Renal/ Medical History: Reports: Hx Benign Prostatic Hyperplasia. 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, Reports Hx Musculoskeletal Deformity, Reports Hx Musculoskeletal Trauma Past Surgical History: Reports: Hx Cardiac Catheterization, Hx Cardiac Surgery - stents, Hx Genitourinary Surgery - TURP, Hx Orthopedic Surgery - Left knee, multiple back surgeries most recently 1 01/15/2016 kyphoplasty L - Immunizations Hx Diphtheria, Pertussis, Tetanus Vaccination: No - NOT SURE IF UP TO DATE Review of Systems - Review of Systems Constitutional: denies: Chills, Fever Cardiovascular: denies: Chest pain, Palpitations Respiratory: denies: Cough, Short of breath -: Yes All other systems reviewed and negative Physical Exam - Vital signs Vitals: Temp Pulse Resp BP Pulse Ox 98.3 F 65 18 160/98 H 95 05/18/19 10:34 05/18/19 10:34 05/18/19 10:34 05/18/19 10:34 05/18/19 10:34 Interpretation: Hypertensive - General General appearance: Appears well, Alert - HEENT Head: Normocephalic, Atraumatic Eyes: Normal Pupils: PERRL Nasal: Bloody discharge - Patient has some mild oozing of bright red blood from the anterior septal wall on the left., Epistaxis Mouth/Lips: Normal Mucous membranes: Moist Pharynx: Blood in hypopharynx - Respiratory Respiratory status: No respiratory distress Chest status: Nontender Breath sounds: Normal Chest palpation: Normal - Cardiovascular Rhythm: Regular Heart sounds: Normal auscultation Murmur: No - Abdominal Inspection: Normal Distension: No distension Bowel sounds: Normal Tenderness: Nontender Organomegaly: No organomegaly - Back Back: Normal, Nontender - Extremities General upper extremity: Normal inspection, Nontender, Normal color, Normal ROM, Normal temperature General lower extremity: Normal inspection, Nontender, Normal color, Normal ROM, Normal temperature, Normal weight bearing. No: Prabha's sign - Neurological Neuro grossly intact: Yes Cognition: Normal Orientation: AAOx4 Maxime Coma Scale Eye Opening: Spontaneous Maxime Coma Scale Verbal: Oriented [place] Coma Scale Motor: Obeys Commands [place] Coma Scale Total: 15 Speech: Normal Motor strength normal: LUE, RUE, LLE, RLE Sensory: Normal - Psychological Associated symptoms: Normal affect, Normal mood - Skin Skin Temperature: Warm Skin Moisture: Dry Skin Color: Normal Course - Re-evaluation Re-evalutation: 05/18/19 13:36 Nose was packed with Merocel. Patient is have been observed for 30 minutes with no further bleeding. Patient will be discharged follow-up with your nose and throat. - Vital Signs Vital signs: Temp Pulse Resp BP Pulse Ox 98.3 F 65 18 160/98 H 95 05/18/19 10:34 05/18/19 10:34 05/18/19 10:34 05/18/19 10:34 05/18/19 10:34 Procedures - Nosebleed Procedure Left Time completed: 13:37 Location: Anterior Supplies used: Nasal tampon - Merocel Notes: Bleeding has stopped. Discharge - Discharge Clinical Impression: Anterior epistaxis Condition: Stable Disposition: HOME, SELF-CARE Instructions: Nosebleed Instructions ([facility]) Additional Instructions: Leave packing in until you see the ear nose and throat doctor. Please call the ear nose and throat doctor as soon as possible to arrange for an appointment for this week. Prescriptions: Azithromycin [Zithromax 250 mg Tablet] 250 mg PO ASDIR PRN #6 tablet PRN Reason: [facility]errals: [facility] [Primary Care [facility]] - Follow up as needed URBANO NORRIS DO [ASSOCIATE] - Follow up in 3-5 days
[2019-05-18 14:16] VITALS: BP 188/86
== END 2019-05-18 14:15 | disposition home or self-care (01) ==
LOC: ER 10:27
DX: R04.0 Epistaxis (principal); I25.10 Atherosclerotic heart disease of native coronary artery without angina pectoris; I10 Essential (primary) hypertension; Z79.02 Long term (current) use of antithrombotics/antiplatelets; Z95.5 Presence of coronary angioplasty implant and graft; Z91.040 Latex allergy status; Z88.0 Allergy status to penicillin
CPT/HCPCS: 30901; 99283; J3490

== ENCOUNTER 2019-05-30 12:03 | Emergency (ER) | payer OTHER ==
[2019-05-30] MEDS ORDERED: OXYMETAZOLINE HCL 0.05% NASAL SPRAY 15 ML BOTTLE NASL ONE (12:10)
--- NOTE | 2019-05-30 12:13 | ER Document Report ---
ED Medical Screen (RME) - General Chief Complaint: Nose Bleed Stated Complaint: NOSE BLEEDING Time Seen by Provider: 05/30/19 12:10 Primary Care Provider: [facility] [Primary Care Provider] - Follow up as needed TRAVEL OUTSIDE OF THE [place] IN LAST 30 DAYS: No - HPI Notes: 05/30/19 12:11 Patient is an 79-year-old male on Eliquis who presents complaining of nosebleed for 30 minutes. Patient states that he was here couple times recently for nosebleeds and had it cauterized by ENT 8 days ago. No other concerns or complaints at this time. I have treated and performed a rapid initial assessment of this patient. A comprehensive ED assessment and evaluation of the patient, analysis of test results and completion of medical decision making process will be conducted by additional ED providers. PHYSICAL EXAMINATION: GENERAL: Well-appearing, well-nourished and in no acute distress. A&Ox4. Answers questions appropriately. Nose: The left nare has a slow leak at this time with blood in his oropharynx. Afrin was sprayed and 2 x 2 gauze soaked in Afrin and temporarily packed. - Related Data Allergies/Adverse Reactions: latex Allergy (Verified 05/16/19 11:41) Penicillins Allergy (Verified 05/16/19 11:41) Past Medical History - Past Medical History Cardiac Medical History: Reports: Hx Coronary Artery Disease - 2 STENTS PLACED IN 2010, Hx DVT, Hx Hypercholesterolemia, Hx Hypertension Denies: Hx Heart Attack Pulmonary Medical History: Denies: Hx Asthma, Hx Bronchitis, Hx COPD, Hx Pneumonia Neurological Medical History: Denies: Hx Cerebrovascular Accident, Hx Seizures Renal/ Medical History: Reports: Hx Benign Prostatic Hyperplasia. Denies: Hx Peritoneal Dialysis Musculoskeltal Medical History: Reports Hx Arthritis - GENERALIZED, Reports Hx Musculoskeletal Deformity, Reports Hx Musculoskeletal Trauma Past Surgical History: Reports: Hx Cardiac Catheterization, Hx Cardiac Surgery - stents, Hx Genitourinary Surgery - TURP, Hx Orthopedic Surgery - Left knee, multiple back surgeries most recently 1 01/15/2016 kyphoplasty L - Immunizations Hx Diphtheria, Pertussis, Tetanus Vaccination: No - NOT SURE IF UP TO DATE Doctor's Discharge - Discharge Referrals: [facility] [[facility] Care [facility]] - Follow up as needed
--- NOTE | 2019-05-30 13:15 | ER Document Report ---
ED ENT - General Chief Complaint: nosebleed Stated Complaint: NOSE BLEEDING Time Seen by Provider: 05/30/19 12:10 Primary Care Provider: [facility] [[facility] Care [facility]] - Follow up as needed TRAVEL OUTSIDE OF THE [place] IN LAST 30 DAYS: No - HPI Notes: 79-year-old male to the emergency department with complaints of a nosebleed that began this morning. He is been struggling with nosebleeds for the past 2 weeks. He initially presented to the emergency department on May 16 for nosebleed. At that time he did not have any packing or dressing placed. 2 days later he returned when he began to bleed again. He had a Merocel nasal dressing placed and did well. He then kept that in until he saw Dr. Travis, on May 21. In May 21 he had the nose cauterized and he did okay at home but still continued to have dark blood with postnasal drip over the next week. He did see Dr. Luciano again and was told to use Afrin to aid in his nosebleed relief. He is on Eliquis and his Eliquis dose was decreased in the past week. He is on Eliquis for recurrent blood clots in the legs. He states that his nose has been bleeding from the same left side and it is a little bit tender after all of the manipulation for the past 2 weeks. He denies any fevers or chills, blunt t rauma, headache, passing out, dizziness, chest pain, shortness of breath. - Related Data Allergies/Adverse Reactions: latex Allergy (Verified 05/30/19 12:12) Penicillins Allergy (Verified 05/30/19 12:12) Home Medications: eliquis Past Medical History - General Information source: Patient - Social History Smoking Status: Never Smoker Chew tobacco use (# tins/day): No Frequency of alcohol use: None Family History: Reviewed & Not Pertinent Patient has suicidal ideation: No Patient has homicidal ideation: No - Past Medical History Cardiac Medical History: Reports: Hx Coronary Artery Disease - 2 STENTS PLACED IN 2010, Hx DVT, Hx Hypercholesterolemia, Hx Hypertension Denies: Hx Heart Attack Pulmonary Medical History: Denies: Hx Asthma, Hx Bronchitis, Hx COPD, Hx Pneumonia Neurological Medical History: Denies: Hx Cerebrovascular Accident, Hx Seizures Renal/ Medical History: Reports: Hx Benign Prostatic Hyperplasia. 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, Reports Hx Musculoskeletal Deformity, Reports Hx Musculoskeletal Trauma Past Surgical History: Reports: Hx Cardiac Catheterization, Hx Cardiac Surgery - stents, Hx Genitourinary Surgery - TURP, Hx Orthopedic Surgery - Left knee, multiple back surgeries most recently 1 01/15/2016 kyphoplasty L - Immunizations Hx Diphtheria, Pertussis, Tetanus Vaccination: No - NOT SURE IF UP TO DATE Review of Systems - Review of Systems Constitutional: denies: Chills, Fever EENT: Nose pain - Left nare pain and nosebleed Cardiovascular: denies: Chest pain, Palpitations, Syncope, Dizziness, Lightheaded Respiratory: denies: Cough, Short of breath Gastrointestinal: denies: Abdominal pain, Diarrhea, Nausea, Vomiting Genitourinary: No symptoms reported Male Genitourinary: No symptoms reported Musculoskeletal: No symptoms reported Hematologic/Lymphatic: Easy bleeding - Patient is on Eliquis Neurological/Psychological: No symptoms reported -: Yes All other systems reviewed and negative Physical Exam - Vital signs Interpretation: Normal - General General appearance: Appears well, Alert In distress: None - HEENT Head: Normocephalic, Atraumatic Eyes: Normal Pupils: PERRL Ears: Normal External canal: Normal Tympanic membrane: Normal Nasal: Epistaxis - There is slight oozing of blood to the anterior left side of the left nostril. There is no septal hematoma. There is no purulent drainage.. No: Purulent discharge, Septal hematoma Mouth/Lips: Normal Pharynx: Normal Neck: Normal, Supple. No: Lymphadenopathy, Meningismus - Respiratory Respiratory status: No respiratory distress Chest status: Nontender Breath sounds: Normal Chest palpation: Normal - Cardiovascular Rhythm: Regular Heart sounds: Normal auscultation Murmur: No - Neurological Neuro grossly intact: Yes Cognition: Normal Orientation: AAOx4 Maxime Coma Scale Eye Opening: Spontaneous [place] Coma Scale Verbal: Oriented [place] Coma Scale Motor: Obeys Commands Maxime Coma Scale Total: 15 Speech: Normal Cranial nerves: Normal Cerebellar coordination: Normal Motor strength normal: LUE, RUE, LLE, RLE Additional motor exam 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 No: Pronator drift Sensory: Normal - Psychological Associated symptoms: Normal affect, Normal mood - Skin Skin Temperature: Warm Skin Moisture: Dry Skin Color: Normal Course - Re-evaluation Re-evalutation: 05/30/19 14:55 attempted to insert rhino rocket -- 7.5 but patient could not tolerate it. Attempted a smaller rhino rocket - 5.5 and still patient could not tolerate it. He was at baseline even without the cuff inflated, very uncomfortable with the rhino rocket. Thus it was decided to apply a 4.5 cm Merocel nasal dressing. He was monitored for over 30 minutes and he has not had any bleeding from the site. He was much more comfortabl with the merocel. He denies any pain with it. IMpression: Epistaxis, recurrent -- likely from friable nasal mucosa and being on Eliquis. Labs are very reassuring and vital signs are stable. Applied Merocel. Since has been packed twice now, will go ahead and start on Abx. - Laboratory Result Diagrams: 05/30/19 13:50 05/30/19 13:50 Discharge - Discharge Clinical Impression: Epistaxis Condition: Stable Disposition: HOME, SELF-CARE Instructions: Nosebleed Instructions ([facility]) Additional Instructions: FOLLOW UP WITH Dr. NORRIS ON SATURDAY WITHOUT FAIL. COMPLETE ANTIBIOTICS. RETURN IF BLEEDING THROUGH NASAL DRESSING. Prescriptions: Clarithromycin [Biaxin 500 mg Tablet] 1 tab PO Q12 #14 tab Referrals: [facility] [Primary Care [facility]] - Follow up as needed URBANO NORRIS DO [ASSOCIATE] - 06/01/19
[2019-05-30 14:12] LABS: ABSOLUTE BASOPHILS # (AUTO) 0.1 10^3/uL (0.0-0.2); ABSOLUTE EOSINOPHILS # (AUTO) 0.1 10^3/uL (0.0-0.6); ABSOLUTE LYMPHOCYTES (AUTO) 1.6 10^3/uL (0.5-4.7); ABSOLUTE MONOCYTES (AUTO) 0.6 10^3/uL (0.1-1.4); ABSOLUTE NEUT (AUTO) 3.9 10^3/uL (1.7-8.2); BASOPHILS % (AUTO) 0.8 % (0-2); EOSINOPHILS % (AUTO) 1.2 % (0-6); HEMATOCRIT 44.8 % (37.9-51.0); HEMOGLOBIN 15.4 g/dL (13.5-17.0); INTERNATIONAL RATION (INR) 1.11; LYMPHOCYTES % (AUTO) 25.5 % (13-45); MEAN CORPUSCULAR HEMOGLOBIN 32.1 pg (27.0-33.4); MEAN CORPUSCULAR HGB CONC 34.4 g/dL (32.0-36.0); MEAN CORPUSCULAR VOLUME 93 fl (80-97); MONOCYTES % (AUTO) 9.3 % (3-13); PLATELET COUNT 192 10^3/uL (150-450); PROTHROMBIN TIME 14.4 SEC (11.4-15.4); RED CELL DISTRIBUTION WIDTH 13.4 % (11.5-14.0); SEGMENTED NEUTROPHILS % (AUTO) 63.2 % (42-78); TOTAL CELLS COUNTED % (AUTO) 100 %; WHITE BLOOD COUNT 6.1 10^3/uL (4.0-10.5)
[2019-05-30 14:13] LABS: PARTIAL THROMBOPLASTIN TIME 33.5 SEC (23.5-35.8)
[2019-05-30 14:25] LABS: ANION GAP 7 (5-19); BLOOD UREA NITROGEN 18 mg/dL (7-20); CALCIUM 9.5 mg/dL (8.4-10.2); CARBON DIOXIDE 30 mmol/L (22-30); CHLORIDE 102 mmol/L (98-107); GLUCOSE 102 mg/dL (75-110); POTASSIUM 4.2 mmol/L (3.6-5.0)
[2019-05-30 15:29] VITALS: BP 172/85
== END 2019-05-30 15:10 | disposition home or self-care (01) ==
LOC: ER 12:03
DX: R04.0 Epistaxis (principal); Z91.040 Latex allergy status; Z88.0 Allergy status to penicillin; Z79.01 Long term (current) use of anticoagulants
CPT/HCPCS: 30901; 99283; 36415; 85025; 85610; 85730; 80048; J3490

== ENCOUNTER 2019-05-31 08:00 | Emergency (ER) | payer OTHER ==
[2019-05-31] MEDS ORDERED: TRANEXAMIC ACID INJ/PF 1,000 MG/10 ML SDV TOP ONE (08:18)
--- NOTE | 2019-05-31 08:22 | ER Document Report ---
ED ENT - General Chief Complaint: Nose Bleed Stated Complaint: NOSE BLEED Time Seen by Provider: 05/31/19 08:11 [facility]: [facility] [[facility]] - Follow up as needed TRAVEL OUTSIDE OF THE [place] IN LAST 30 DAYS: No - HPI Notes: 79-year-old male to the emergency department with complaints of persistent left nare nosebleed. This will make his fourth visit to the emergency department for nosebleed in the past 2 weeks. He was initially seen on May 16 and then again on May 18. On May 18 he had Murocel packing placed and then he was seen by Dr. Luciano for nose cautery on May 21 he states that after the he had a little bit of control and actually saw Dr. Luciano for second time because he was noticing some brownish postnasal drip. He was told to take Afrin and he has been doing so until yesterday. Yesterday he had a lengthy nosebleed of approximately 90 minutes long and he presented back to the emergency department. He had some slight oozing in his left nares even though he was given Afrin upon arrival. I also evaluated the patient yesterday we attempted to place a Rhino Rocket but patient could not tolerate the pressure that is created by the rocket. Thus, we placed a 4.5 Merocel nasal dressing. He did well and was discharged home. However he states that he woke up this morning and started bleeding around the dressing and decided to come back in for further evaluation. He is notably on Eliquis. Initially he was on 5 mg twice a day and he states that he has been reduced in half. He states that he takes the Eliquis for recurrent blood clots in his legs. Of note yesterday he was slightly hypertensive and he continues to be so today. He is not on any blood pressure medicine although he has been on some in the past. He states that he was initially on amlodipine but he had trouble with leg swelling. After 4 years of being on amlodipine he was switched to metoprolol. However, he was taken off of the metoprolol when he started to have a bradycardia. He has not been on a blood pressure medicine since. - Related Data Allergies/Adverse Reactions: latex Allergy (Verified 05/30/19 12:12) Penicillins Allergy (Verified 05/30/19 12:12) Home Medications: elliquis Past Medical History - General Information source: Patient - Social History Smoking Status: Never Smoker Chew tobacco use (# tins/day): No Frequency of alcohol use: None Drug Abuse: None Lives with: Alone Family History: Reviewed & Not Pertinent Patient has suicidal ideation: No Patient has homicidal ideation: No - Past Medical History Cardiac Medical History: Reports: Hx Coronary Artery Disease - 2 STENTS PLACED IN 2010, Hx DVT, Hx Hypercholesterolemia, Hx Hypertension Denies: Hx Heart Attack Pulmonary Medical History: Denies: Hx Asthma, Hx Bronchitis, Hx COPD, Hx Pneumonia Neurological Medical History: Denies: Hx Cerebrovascular Accident, Hx Seizures Renal/ Medical History: Reports: Hx Benign Prostatic Hyperplasia. 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, Reports Hx Musculoskeletal Deformity, Reports Hx Musculoskeletal Trauma Past Surgical History: Reports: Hx Cardiac Catheterization, Hx Cardiac Surgery - stents, Hx Genitourinary Surgery - TURP, Hx Orthopedic Surgery - Left knee, multiple back surgeries most recently 1 01/15/2016 kyphoplasty L - Immunizations Hx Diphtheria, Pertussis, Tetanus Vaccination: No - NOT SURE IF UP TO DATE Review of Systems - Review of Systems Constitutional: denies: Chills, Fever EENT: See HPI, Nose pain, Other - Nosebleed Cardiovascular: denies: Chest pain, Palpitations, Orthopnea, Dyspnea, Dizziness, Lightheaded Respiratory: denies: Cough, Short of breath Gastrointestinal: denies: Diarrhea, Nausea, Vomiting Genitourinary: No symptoms reported Musculoskeletal: No symptoms reported Skin: No symptoms reported Hematologic/Lymphatic: No symptoms reported Neurological/Psychological: No symptoms reported -: Yes All other systems reviewed and negative Physical Exam - Vital signs Vitals: Temp Pulse Resp BP Pulse Ox 98 F 71 16 155/75 H 96 05/31/19 08:05 05/31/19 08:05 05/31/19 08:05 05/31/19 08:05 05/31/19 08:05 Interpretation: Normal - General General appearance: Appears well, Alert In distress: None - HEENT Head: Normocephalic, Atraumatic Eyes: Normal Pupils: PERRL Ears: Normal External canal: Normal Tympanic membrane: Normal Sinus: Normal Nasal: Bloody discharge, Epistaxis - After removal of Merocel nasal dressing which was soaked with blood, it is noted that there is a anterior bleed to the wall of the left nare. It is slowly oozing.. No: Purulent discharge, Septal hematoma Mouth/Lips: Normal Mucous membranes: Normal Pharynx: Normal. No: Potential airway comprom. Neck: Normal, Supple. No: Lymphadenopathy, Meningismus - Respiratory Respiratory status: No respiratory distress Chest status: Nontender. No: Accessory muscle use Breath sounds: Normal. No: Rales, Rhonchi, Wheezing Chest palpation: Normal - Cardiovascular Rhythm: Regular Heart sounds: Normal auscultation Murmur: No - Abdominal Inspection: Normal Distension: No distension Bowel sounds: Normal Tenderness: Nontender. 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 - Skin Skin Temperature: Warm Skin Moisture: Dry Skin Color: Normal Course - Re-evaluation Re-evalutation: 05/31/[address] Norris, patient's ENT. We discussed his visit yesterday and his presenting symptoms today. Dr. Norris would like for me to give medicine for HTN and also to repack the nose with Merocel. He is aware that the patient could not tolerate the Rhino Rocket yesterday. He suggests obtaining an 8 cm Merocel and trimming it down to 6 cm. He would like me to apply bacitracin to the Merocel, then wrap it with surgicel. Once wrap and inserted, he would like for me to inflate it with Afrin. If needed, he states I could apply Flocel around the packing as well. Dr. Norris agrees with the plan for Abx. His Drug of choice would be Bactrim since patient has a PCN allergy. Applied Merocel wrapped in Surgicel. Cut Merocel down to 6 cm, but did have to cut it further down to about 5 cm, as patient couldn't tolerate it at 6cm. After inserting the Merocel, inflated it with Afrin. Patient was watched for about 1 hour. No further bleeding noted. Of note, patient reports to me right before nasal packing placed that he had left sided abdominal pain last night. He states every time he laid on his left side, he had pain. States that this was relieved by rolling onto the right side. Denies NVD. Denies current pain. I added a CMP to his lab work and awaiting CBC. I was not able to illicit any significant abdominal tenderness on exam. He does have a ventral hernia just above his umbilicus, but it is non tender to palpation and easily reducible. We discussed if patient would like to get imaging, but he declines today. IMpression; Recurrent nosebleeds, elevated BP. Patient states he has difficu lty tolerating Norvasc. He states he has significant leg swelling with it. Thus, will not send him home with it. We discussed other options. Beta Blockers apparently make him bradycardic so will avoid those and he has BPH and finds that he is often peeing alot in the night. States he would rather not try a diuretic. Thus, will place on 5 mg of Lisinopril. Since we will use Lisinopril, will have him continue Clarithromycin from yesterday to avoid Bactrim and Lisinopril hyperkalemia risk. I have also educated patient that he will need to have his electrolytes monitored in the next week while taking Lisinopril. Patient agrees with the plan. Urge him to return if he is worse at all. - Vital Signs Vital signs: Temp Pulse Resp BP Pulse Ox 98 F 71 16 155/75 H 96 05/31/19 08:05 05/31/19 08:05 05/31/19 08:05 05/31/19 08:05 05/31/19 08:05 - Laboratory Result Diagrams: 05/31/19 08:35 05/31/19 08:35 Laboratory results interpreted by me: 05/31/19 08:35 Chloride 108 H Glucose 163 H Discharge - Discharge Clinical Impression: Nosebleed, Elevated blood pressure reading Condition: Stable Disposition: HOME, SELF-CARE Instructions: Nosebleed Instructions (OM) Additional Instructions: Keep nasal dressing in until you see Dr. Norris. Complete antibiotics. Please call your primary care for further management of your blood pressure - Dr. Norris would like you to be seen for this preferably before seeing him. Take Lisinopril daily. You will need to have your potassium levels monitored closely in the next week. Return if worsening symptoms. See Dr. Norris on Saturday of this week. If you do not hear from his office tomorrow by , call to ensure appointment for Saturday. Prescriptions: Lisinopril [Prinivil 5 mg Tablet] 5 mg PO DAILY #15 tablet Referrals: [facility] [Primary [facility]] - Follow up tomorrow URBANO NORRIS DO [ASSOCIATE] - 06/02/19
[2019-05-31] MEDS ORDERED: AMLODIPINE BESYLATE 5 MG TABLET PO ONE (08:39)
[2019-05-31] MEDS ORDERED: OXYMETAZOLINE HCL 0.05% NASAL SPRAY 15 ML BOTTLE NASL ONE (08:40)
[2019-05-31 08:45] LABS: ABSOLUTE EOSINOPHILS # (AUTO) 0.1 10^3/uL (0.0-0.6); ABSOLUTE LYMPHOCYTES (AUTO) 1.1 10^3/uL (0.5-4.7); ABSOLUTE MONOCYTES (AUTO) 0.5 10^3/uL (0.1-1.4); ABSOLUTE NEUT (AUTO) 3.9 10^3/uL (1.7-8.2); BASOPHILS % (AUTO) 0.7 % (0-2); HEMATOCRIT 45.1 % (37.9-51.0); HEMOGLOBIN 15.6 g/dL (13.5-17.0); LYMPHOCYTES % (AUTO) 19.8 % (13-45); MEAN CORPUSCULAR HEMOGLOBIN 32.3 pg (27.0-33.4); MEAN CORPUSCULAR HGB CONC 34.5 g/dL (32.0-36.0); MEAN CORPUSCULAR VOLUME 93 fl (80-97); MONOCYTES % (AUTO) 9.2 % (3-13); PLATELET COUNT 200 10^3/uL (150-450); RED BLOOD COUNT 4.83 10^6/uL (4.35-5.55); RED CELL DISTRIBUTION WIDTH 13.4 % (11.5-14.0); SEGMENTED NEUTROPHILS % (AUTO) 69.3 % (42-78); TOTAL CELLS COUNTED % (AUTO) 100 %; WHITE BLOOD COUNT 5.6 10^3/uL (4.0-10.5)
[2019-05-31 10:13] LABS: ALBUMIN 3.6 g/dL (3.5-5.0); ALKALINE PHOSPHATASE 86 U/L (38-126); ANION GAP 8 (5-19); ASPARTATE AMINO TRANSFERASE 33 U/L (17-59); BILIRUBIN,DIRECT 0.3 mg/dL (0.0-0.4); BLOOD UREA NITROGEN 16 mg/dL (7-20); CALCIUM 9.1 mg/dL (8.4-10.2); CARBON DIOXIDE 24 mmol/L (22-30); CHLORIDE 108 mmol/L (98-107); GLUCOSE 163 mg/dL (75-110); POTASSIUM 3.9 mmol/L (3.6-5.0); TOTAL PROTEIN 6.4 g/dL (6.3-8.2)
[2019-05-31 11:05] VITALS: BP 156/74
== END 2019-05-31 11:05 | disposition home or self-care (01) ==
LOC: ER 08:00
DX: R04.0 Epistaxis (principal); I10 Essential (primary) hypertension; E78.00 Pure hypercholesterolemia, unspecified; Z91.040 Latex allergy status; Z88.0 Allergy status to penicillin; Z86.718 Personal history of other venous thrombosis and embolism
CPT/HCPCS: 99283; 36415; 83690; 85025; 80053; 30901; J3490 ×2

== ENCOUNTER → 2019-08-12 | Outpatient (CLI) | payer OTHER | LOC: SP 10:32 | PROVIDERS: ATTEND Physician Assistant | DX: I82.503 Chronic embolism and thrombosis of unspecified deep veins of lower extremity, bilateral (principal); M79.662 Pain in left lower leg; M79.661 Pain in right lower leg | CPT/HCPCS: 93925 ==

== ENCOUNTER → 2019-09-07 | Outpatient (CLI) | payer OTHER ==
--- NOTE | 2019-09-07 16:19 | XCELERA REPORT ---
[address] [address] Lower Extremity Venous Evaluation Procedure: Color flow and duplex imaging bilaterally of the veins of the lower extremities as well as the Common Femoral veins. Right Sided Venous Evaluation Echogenic poor, no flow, increased size, in one of paired Femoral veins. Otherwise normal vessel filling wall to wall, compression and augmentation as well as Colour flow down to the infrageniculate veins. Left Sided Venous Evaluation Normal vessel filling wall to wall, compression and augmentation as well as Colour flow down to the infrageniculate veins. 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 Otherwise normal in other right sided veins and in left lower extremity. Patient on anticoagulant. Name: CRIS THAKKAR Age: 79 yrs Gender: Male : 1940 Patient Status: Outpatient Patient Location: Study Date: 09/07/2019 01:14 PM Reason For Study: MUSCLE ACHES/PAIN Ordering Physician: EBONI NOVAK Performed By: Curry George : EBONI NOVAK > Fadi Cotto
== END ==
LOC: SP 12:07
PROVIDERS: ATTEND Physician Assistant
DX: I82.511 Chronic embolism and thrombosis of right femoral vein (principal); M79.18 Myalgia, other site
CPT/HCPCS: 93970

== ENCOUNTER → 2019-09-16 | Outpatient (CLI) | payer OTHER ==
--- NOTE | 2019-09-16 10:10 | RADIOLOGY REPORT (SQ) ---
EXAM DESCRIPTION: U/S ABD AORTIC SCREENING COMPLETED DATE/TIME: 09/16/2019 8:48 am REASON FOR STUDY: ABD PAIN COMPARISON: None. TECHNIQUE: Static and dynamic grayscale images acquired of the aorta and stored on PACs. Selected co trenton Doppler and spectral images recorded. LIMITATIONS: None. FINDINGS: AORTIC CALIBER MAXIMAL PROXIMAL: 2.3 cm. MID: 2.4 cm. DISTAL: 2.0 cm. ILIAC DIAMETER Not visualized due to overlying bowel gas. OTHER: No other significant finding. IMPRESSION: NO ABDOMINAL AORTIC ANEURYSM. COMMENT: Aortic aneurysm imaging followup: Negative, no followup necessary. *Based upon the Society for Vascular Surgery Guidelines: J Vasc Surg. 2009 Oct;50(4 Suppl):S2-49 *For aortas of maximum diameter of 2.6-2.9 cm meeting the criteria for AAA (?1.5 x proximal normal se gment) TECHNICAL DOCUMENTATION: JOB ID: [id number] 2010 [email or web address]- All Rights Reserved Reading location - IP/workstation name: [email or web address]
--- NOTE | 2019-09-16 11:18 | RADIOLOGY REPORT (SQ) ---
EXAM DESCRIPTION: U/S THYROID/SFT TISS HD NECK COMPLETED DATE/TIME: 09/16/2019 9:38 am REASON FOR STUDY: NONTOXIC GOITER COMPARISON: None. TECHNIQUE: Dynamic and static ervin-scale images acquired of the thyroid gland. Selected additional c olor/power Doppler images recorded. All images stored to PACS. LIMITATIONS: None. FINDINGS: RIGHT LOBE: Normal size. Homogeneous echotexture. Small calcified nodule in the right lo be measured 5.3 x 4.9 x 6.0 mm. LEFT LOBE: Normal size. Homogeneous echotexture. No cystic or solid masses. ISTHMUS: Normal size. Homogeneous echotexture. No cystic or solid masses. OTHER: No other significant finding. IMPRESSION: Partially calcified nodule in the right lobe measured at 5.3 x 4.9 x 6.0 mm. This corre sponds to a TR 3 or TR 4 lesion. Based on size this can be followed. TECHNICAL DOCUMENTATION: JOB ID: [id number] 2010 [employer]- All Rights Reserved Reading location - IP/workstation name: [email or web address]
== END ==
LOC: RAD 07:56
PROVIDERS: ATTEND Physician Assistant
DX: Z13.6 Encounter for screening for cardiovascular disorders (principal)
CPT/HCPCS: 76536; 76706